=== PATIENT | female | born 1945 | race Caucasian/White ===

== ENCOUNTER → 2017-02-17 | Outpatient (CLI) | payer OTHER ==
[~2017-02-17] VITALS: Ht 157.5 cm; Wt 50.2 kg
[~2017-02-17] MED LIST: BENICAR20 MG PO; CALCIUM 600 +1 EAC8 PO; CELEXA 20 MG TA20 M1 PO; CELEXA 20 MG TA20 MG; CLONAZEPAM 1 MG1 M1 PO; HYDROCODON-ACE1 EAC7 PO; HYDROCODONE-AP1 EAC6 PO; HYDROCODONE-APA1 TA1 PO; MOBIC7.5 MG PO; MS CONTIN15 MG PO; MS CONTIN30 MG PO; NAPROXEN375 MG PO; NORCO 10-325 T1 EACH PO; NORCO 5-325 TA1 EACH PO; NORCO 7.5-3251 EACH PO; OMEPRAZOLE40 MG PO; PROAIR HFA8.5 GM INH; PROTONIX40 M1 PO; PROTONIX40 M4 PO; REQUIP 1 MG TABL1 M1 PO; SYMBICORT80 MCG/4.1 INH; ZOCOR 20 MG TAB20 M1 PO
--- NOTE | ~2017-02-17 | HPC ---
[facility] [place] [address] PAIN MANAGEMENT CONSULTATION Name: ANA LUISA ANDERSON Room #: REG DALIA Burgess#: [id number] Admission: 02/17/17 Attend Phys: Herber Santos DO Discharge: Date of : 43 Report #: [id number] THIS REPORT FOR: //name// CC: Prashant Santos The patient is a 72-year-old female last seen in the pain clinic 12/13/2016 diagnosed with symptomatic lumbar radiculopathy, lumbar spondylosis, requiring complex medication management. She has had epidural injections in the past, bilateral transforaminal epidural injections back in August and had similar procedure about a year earlier in October 2015. She has been stable on baseline medication including hydrocodone 5/325 about 4 a day. She returns to the pain clinic today noting some changes in symptoms. Her chronic radicular back pain is actually fairly well controlled. Her pain impact score is 21/70. Her opiate risk assessment tool scores are in the lowest category. She notes, however, that pain is a little more problematic, rates at 6/10. Transforaminal bilateral injections, last year afforded good relief for radicular pain, but now she has more low back pain without radiation. She notes pain in the mid back beltline area. Chronic aching 6 on a 0-10 visual analog scale, exacerbated with sitting too long or standing too long, rest and lying down do improve symptoms. PHYSICAL EXAM: GENERAL: Shows 72-year-old female, BMI is 20.2 kilograms per meter squared. She continues to smoke and was counseled regarding this. She has a of 02/24/2017, in 1 week. She has nicotine patches ____. VITAL SIGNS: Blood pressure is 168/90, pulse 86, respirations are 20. NEUROLOGIC: Alert and oriented to person, place and time, judged to be a reasonable historian. MUSCULOSKELETAL: Rises from chair using armrest. Diffuse tenderness across the low back, left greater than right rotation exacerbates low back pain. She is tender in the L4-L5 area. Lumbar flexion is limited. She does have a little thoracic kyphosis. Lower extremity strength is diminished, a little greater on the right than the left, 2-3/5 versus 3-4/5 in the left. Patellar and Achilles reflexes are preserved. Straight leg raise is negative. Sparkle test is positive bilaterally, but pain is primarily little bit above this in the L4-L5 and L5-S1 facet area. We reviewed the fact that opiate medications are being used to provide analgesia adequate to support activities of daily living, not attempting to achieve a specific pain score on the 0-10 Visual Analog Scale. The current opiate medications are providing sufficient analgesia to allow the patient to participate in activities of daily living. The patient is not exhibiting any aberrant behavior suggestive of drug diversion. The patient is not having any adverse reactions to medications. The patient is not suffering from daytime somnolence or mental acuity changes. The patient is managing opiate-induced [address] [address] PAIN MANAGEMENT CONSULTATION Name: ANA LUISA ANDERSON Room #: MARISSA Burgess#: [id number] Admission: 02/17/17 Attend Phys: Herber Santos DO Discharge: Date of : 43 Report #: [id number] constipation with appropriate vuuu-oyu-rkqpebo agents and dietary considerations. The patient was counseled on concern for caution with operating a motor vehicle while using opiate medications. A physical exam was performed and the patient's functional status was evaluated. All patients with back pain were advised against the bed rest greater than 4 days and were advised to return to normal activities. Pain score assessment was noted and the treatment plan was reviewed with the patient. All current medications, both prescribed and OTC were reviewed and reconciled on the electronic medical record. Tobacco screening was accomplished and smoking cessation was advised when indicated. BMI was noted and diet/exercise modification was recommended for all patients following outside normal parameters. I reviewed with the patient today their responsibilities to safeguard prescription medications, reviewed their responsibility to utilize medications only as prescribed by the physician. They are to seek and receive pain medications only from 1 physician group ( [facility]). They are to use 1 pharmacy and keep the clinic informed if they change pharmacies. Their responsibilities include making followup visits in a timely fashion and to avoid abrupt discontinuation of medication usage. Their responsibilities further include bringing their medications (bottles from the pharmacy with residual pills) to the visit for possible confirmation of pill counts and the patient understands it is their responsibility to submit to random drug screens to ensure both that the medications prescribed are present, and that no other controlled substances are present. All prescriptions provided today were generated electronically. ASSESSMENT: Lumbar radiculopathy, requiring complex medication management, stable on baseline medication. RECOMMENDATIONS: 1. Renew hydrocodone 5/325 up to 4 a day, taken the liberty of writing for 3 months of current medication. 2. New diagnosis of lumbar spondylosis. RECOMMENDATION: L4-L5 and L5-S1 facet joint injections under fluoroscopy today. PROCEDURE: After written and informed consent was obtained, the patient was taken to the fluoroscopy suite and placed in prone position. After sterile prep and drape, skin wheal with Xylocaine were raised. A #22-gauge stylet needle was placed to contact the inferior aspect of the left L4-L5 and left L5-S1 facet joint. AP and lateral projections showed good needle placement, 20 mg triamcinolone plus 0.5 mL and 0.5% preservative-free bupivacaine was injected at each site. Both of these needles removed. C-arm was turned oblique to the right. Procedure was repeated for the right L4-L5 and L5-S1 facet joint [facility] [address] [address] PAIN MANAGEMENT CONSULTATION Name: ANA LUISA ANDERSON LOU Room #: REG [facility] Aditya#: [id number] Admission: 02/17/17 Attend Phys: Herber Santos DO Discharge: Date of : 43 Report #: [id number] injections, again biplanar fluoroscopy showed good needle placement. After all four needles removed, the patient was allowed to ambulate to recovery room, monitored for an appropriate period of time, discharged in good and stable condition, noting significant improvement of baseline pain, in fact noting the pain was near gone radiating to 0-1 on a 0-10 visual analog scale having been 6/10 on admission. By: [id number] Herber Santos DO /nt
[2017-02-17 09:27] VITALS: BP 168/90
== END ==
LOC: PAIN 06:49
DX: M47.26 Other spondylosis with radiculopathy, lumbar region (principal); I10 Essential (primary) hypertension; F17.210 Nicotine dependence, cigarettes, uncomplicated

== ENCOUNTER → 2017-04-21 | Outpatient (CLI) | payer OTHER ==
[~2017-04-21] VITALS: Ht 157.5 cm; Wt 50.8 kg
--- NOTE | ~2017-04-21 | HPC ---
[facility] [place] [address] [place] [address] PAIN MANAGEMENT CONSULTATION Name: ANA LUISA ANDERSON Room #: REG DALIA Burgess#: [id number] Admission: 04/21/17 Attend Phys: Herber Santos DO Discharge: Date of : 43 Report #: [id number] THIS REPORT FOR: //name// CC: Prashant Santos INDICATIONS: The patient is a 72-year-old female being treated for lumbar radiculopathy, lumbar spondylosis, requiring complex medication management. She is status post lumbar decompressive laminectomy and has had good relief of radicular symptoms with bilateral L4-L5 transforaminal epidural injections, last transforaminal injections were August 2016. Prior, she had bilateral transforaminal injections in December 2015 and October 2015. She was seen February 17 with axial back pain. We proceeded with bilateral L4-L5 and L5-S1 facet joint injections for spondylitic pain. He returns to the pain clinic today. She is continued on hydrocodone 5/325 four a day, having no problems with daytime somnolence, mental acuity changes, constipation. Pain impact score is 20/70. Opioid risk assessment tool scores were in the low risk category. She notes medications provide sufficient analgesia to participate in activities of daily living. Unfortunately, she is having increasing radicular pain again. She notes the facet joint injection did afford good relief with her axial back pain. She had right eye cataract surgery done on April 02. She is planning on having the left side done next week. We told her we would like to wait several weeks before proceeding with any epidural injections given the impact of steroids on wound healing. She continues to smoke, but is down to half pack a day. She smoked for greater than 40 years. We did talk at length about quitting. 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 She is planning on trying to quit smoking after surgery. PHYSICAL EXAMINATION: VITAL SIGNS: A 72-year-old female, BMI is 20.5 kilograms per meter squared. Vital signs are stable as noted in the EMR. MUSCULOSKELETAL: Rises from chair using armrest. Gait is tandem. Diffuse tenderness across the low back has actually improved. She does have radicular pain bilaterally with positive straight leg raise bilaterally. DIAGNOSTIC STUDY: Fairly dated 2010, x-rays show severe degenerative lumbar changes L4-L5 and L5-S1 with stenosis noted at multiple levels. ASSESSMENT: Symptomatic lumbar radiculopathy status post decompressive laminectomy. RECOMMENDATIONS: 1. Renew hydrocodone 5/325, 120 tablets with release today and in 4 weeks. 2. Followup for bilateral L4-L5 transforaminal epidural injections under [address] [address] PAIN MANAGEMENT CONSULTATION Name: ANA LUISA ANDERSON Room #: REG DALIA Burgess#: [id number] Admission: 04/21/17 Attend Phys: Herber Santos DO Discharge: Date of : 43 Report #: [id number] fluoroscopy at the earliest possible date. We will seek authorization for same (we will want to wait at least 2 weeks after her cataract surgery). We reviewed the fact that opiate medications are being used to provide analgesia adequate to support activities of daily living, not attempting to achieve a specific pain score on the 0-10 Visual Analog Scale. The current opiate medications are providing sufficient analgesia to allow the patient to participate in activities of daily living. The patient is not exhibiting any aberrant behavior suggestive of drug diversion. The patient is not having any adverse reactions to medications. The patient is not suffering from daytime somnolence or mental acuity changes. The patient is managing opiate-induced constipation with appropriate sjrx-yai-qfpkwim agents and dietary considerations. The patient was counseled on concern for caution with operating a motor vehicle while using opiate medications. A physical exam was performed and the patient's functional status was evaluated. All patients with back pain were advised against the bed rest greater than 4 days and were advised to return to normal activities. Pain score assessment was noted and the treatment plan was reviewed with the patient. All current medications, both prescribed and OTC were reviewed and reconciled on the electronic medical record. Tobacco screening was accomplished and smoking cessation was advised when indicated. BMI was noted and diet/exercise modification was recommended for all patients following outside normal parameters. I reviewed with the patient today their responsibilities to safeguard prescription medications, reviewed their responsibility to utilize medications only as prescribed by the physician. They are to seek and receive pain medications only from 1 physician group ( [facility]). They are to use 1 pharmacy and keep the clinic informed if they change pharmacies. Their responsibilities include making followup visits in a timely fashion and to avoid abrupt discontinuation of medication usage. Their responsibilities further include bringing their medications (bottles from the pharmacy with residual pills) to the visit for possible confirmation of pill counts and the patient understands it is their responsibility to submit to random drug screens to ensure both that the medications prescribed are present, and that no other controlled substances are present. All prescriptions provided today were generated electronically. <ELECTRONICALLY SIGNED> By: Herber Santos DO 04/23/17 [id number] Herber Santos DO /nt
[2017-04-21 14:59] VITALS: BP 140/79
== END ==
LOC: PAIN 06:49
DX: M54.16 Radiculopathy, lumbar region (principal); Z98.890 Other specified postprocedural states; F17.210 Nicotine dependence, cigarettes, uncomplicated; Z98.42 Cataract extraction status, left eye

== ENCOUNTER → 2017-06-19 | Outpatient (CLI) | payer OTHER ==
[~2017-06-19] VITALS: Ht 157.5 cm; Wt 52.2 kg
--- NOTE | ~2017-06-19 | HPC ---
[facility] [address] [address] PAIN MANAGEMENT CONSULTATION Name: ANA LUISA ANDERSON Room #: REG DALIA Burgess#: [id number] Admission: 06/19/17 Attend Phys: Herber Santos DO Discharge: Date of : 43 Report #: [id number] THIS REPORT FOR: //name// CC: Prashant Santos The patient is a 72-year-old female typically treated for lumbar radiculopathy status post decompressive laminectomy, lumbar spondylosis, requiring complex medication management. Last seen in the pain clinic 04/21/2017. We continued the patient on hydrocodone 5/325 up to 4 a day for chronic pain concerns. She has done well with transforaminal epidural injections occasionally. In February; however, she had primarily axial back pain and I did bilateral lumbar facet joints with really unfortunately nominal improvement of pain. She returns to pain clinic today noting pain continues to be problematic in the back, though it is actually a little better today than it has been, but typically she has ongoing axial back pain with lumbar radicular component bilaterally at L4 pattern, paresthesia and pain in the lateral anterior thigh radiating down the anterior sorensen with paresthesia going into the great toe. The patient notes the pain is exacerbated with standing, walking and bending. She states is chronic, aching sensation, rates it 3-4 on VAS, which is fairly mild for her. Notes the pain is exacerbated with sitting too long, and/or walking too long. PHYSICAL EXAMINATION: Shows a 72-year-old female, 21 kilograms per meter squared. Vital signs stable as noted in the EMR. She is alert, oriented, person, place and time, judged to be a reasonable historian. Rises from chair using armrest, modestly antalgic gait. Lumbar flexion is limited about 80 degrees. Again, bilateral straight leg raise at 30 degrees exacerbating radicular pain. Slight decrease bilateral hip flexion strength. DIAGNOSTIC STUDIES: Somewhat dated, she has scoliosis with severe degenerative changes L4 through L5. That study is from 2010. We reviewed the fact that opiate medications are being used to provide analgesia adequate to support activities of daily living, not attempting to achieve a specific pain score on the 0-10 Visual Analog Scale. The current opiate medications are providing sufficient analgesia to allow the patient to participate in activities of daily living. The patient is not exhibiting any aberrant behavior suggestive of drug diversion. The patient is not having any adverse reactions to medications. The patient is not suffering from daytime somnolence or mental acuity changes. The patient is managing opiate-induced constipation with appropriate pvay-rst-xmfiruq agents and dietary considerations. The patient was counseled on concern for caution with operating a motor vehicle while using opiate medications. A physical exam was performed and the patient's [place] [address] PAIN MANAGEMENT CONSULTATION Name: ANA LUISA ANDERSON Room #: REG CLBoom Burgess#: [id number] Admission: 06/19/17 Attend Phys: Herber Santos DO Discharge: Date of : 43 Report #: [id number] All patients with back pain were advised against the bed rest greater than 4 days and were advised to return to normal activities. Pain score assessment was noted and the treatment plan was reviewed with the patient. All current medications, both prescribed and OTC were reviewed and reconciled on the electronic medical record. Tobacco screening was accomplished and smoking cessation was advised when indicated. BMI was noted and diet/exercise modification was recommended for all patients following outside normal parameters. I reviewed with the patient today their responsibilities to safeguard prescription medications, reviewed their responsibility to utilize medications only as prescribed by the physician. They are to seek and receive pain medications only from 1 physician group ( [facility]). They are to use 1 pharmacy and keep the clinic informed if they change pharmacies. Their responsibilities include making followup visits in a timely fashion and to avoid abrupt discontinuation of medication usage. Their responsibilities further include bringing their medications (bottles from the pharmacy with residual pills) to the visit for possible confirmation of pill counts and the patient understands it is their responsibility to submit to random drug screens to ensure both that the medications prescribed are present, and that no other controlled substances are present. All prescriptions provided today were generated electronically. ASSESSMENT: Symptomatic lumbar radiculopathy status post decompressive laminectomy with ongoing bilateral L4 radicular pain relatively stable on baseline hydrocodone 5/325. She has had excellent relief following bilateral transforaminal epidural injections in the past, last injection was 08/30/2016. Prior she had transforaminal epidural injections October 2015. We will seek authorization for bilateral L4-L5 transforaminal epidural injection under fluoroscopy at next visit. I have taken the liberty of renewing hydrocodone 5/325, up to 4 a day for ongoing pain. Discharged in good and stable condition. By: [id number] Herber Santos DO /nt
[2017-06-19 10:48] VITALS: BP 165/88
== END | disposition home or self-care (01) ==
LOC: PAIN 05-19 06:41
DX: Z76.0 Encounter for issue of repeat prescription (principal); M54.16 Radiculopathy, lumbar region; G89.29 Other chronic pain; F17.210 Nicotine dependence, cigarettes, uncomplicated; Z98.890 Other specified postprocedural states; Z79.891 Long term (current) use of opiate analgesic

== ENCOUNTER → 2017-07-07 | Outpatient (CLI) | payer OTHER ==
[~2017-07-07] VITALS: Ht 157.5 cm; Wt 53.1 kg
--- NOTE | ~2017-07-07 | HPC ---
[facility] [place] [address] PAIN MANAGEMENT CONSULTATION Name: ANA LUISA ANDERSON Room #: REG DALIA Burgess#: [id number] Admission: 07/07/17 Attend Phys: Herber Santos DO Discharge: Date of : 43 Report #: [id number] THIS REPORT FOR: //name// CC: Prashant Santos HISTORY OF PRESENT ILLNESS: The patient is a 72-year-old female, prior seen in the pain clinic on 06/19/2017. She is being treated for symptomatic lumbar radiculopathy status post decompressive laminectomy, lumbar spondylosis, requiring complex medication management. Last visit, we continued the patient on baseline medication including hydrocodone 5/325 up to 4 a day and sought authorization for bilateral L4-L5 transforaminal epidural injections. The patient has had good relief with facet injections in the past, last injection being 02/17/2017. Ongoing back, bilateral leg pain, left greater than right. ASSESSMENT: Symptomatic lumbar radiculopathy status post decompressive laminectomy. The patient presents for bilateral transforaminal epidural injections under fluoroscopy at L4-L5 for ongoing lumbar radicular pain L4 distribution left and right, status post lumbar decompressive laminectomy. PROCEDURE 1: Left L4-L5 transforaminal epidural injection under fluoroscopy. PROCEDURE NOTE: After both written and informed consent was obtained including risk of spinal cord damage, infection, increased pain and paralysis, the patient agreed to proceed. The patient was taken to the fluoroscopy suite, placed in a prone position with appropriate abdominal bolstering. After sterile prep with ChloraPrep and sterile drape, a skin wheal with 1% Xylocaine was raised. A 22 gauge 4-1/2 inch epidural Tuohy needle was inserted. From an oblique approach into the posterior-superior aspect of the left L4-L5 neural foramen with continuous pressure on the glass syringe plunger for loss of resistance. Glass syringe was filled with 2 cc of 0.1 Xylocaine. The glass loss of resistance syringe was removed. A low volume extension tubing was connected, negative aspiration was accomplished for cerebrospinal fluid or blood. 1 mL of Omnipaque was injected which showed spread both within the epidural space and laterally along the nerve root. This was followed with 40 mg of triamcinolone plus 1 mL of 1.5% preservative-free Xylocaine. Needle was partially withdrawn, 0.5 mL of Xylocaine was injected to clear the needle and the needle was removed. The area was cleansed, band-aid was applied. The patient was allowed to ambulate to the recovery room, discharged in good and stable condition. PROCEDURE 2: Right L4-L5 transforaminal epidural injection under fluoroscopy. PROCEDURE NOTE: After both written and informed consent was obtained including risk of spinal cord damage, infection, increased pain and paralysis, the patient agreed to proceed. The patient was taken to the fluoroscopy suite, placed in a prone position with appropriate abdominal bolstering. After sterile prep with ChloraPrep and sterile drape, a skin wheal with 1% Xylocaine was raised. A [address] [address] PAIN MANAGEMENT CONSULTATION Name: ANA LUISA ANDERSON Room #: REG DALIA Burgess#: [id number] Admission: 07/07/17 Attend Phys: Herber Santos, Discharge: Date of : 43 Report #: [id number] gauge 4-1/2 inch epidural Tuohy needle was inserted. From an oblique approach into the posterior-superior aspect of the right L4-L5 neural foramen with continuous pressure on the glass syringe plunger for loss of resistance. Glass syringe was filled with 2 cc of 0.1 Xylocaine. The glass loss of resistance syringe was removed. A low volume extension tubing was connected, negative aspiration was accomplished for cerebrospinal fluid or blood. 1 mL of Omnipaque was injected which showed spread both within the epidural space and laterally along the nerve root. This was followed with 40 mg of triamcinolone plus 1 mL of 1.5% preservative-free Xylocaine. Needle was partially withdrawn, 0.5 mL of Xylocaine was injected to clear the needle and the needle was removed. The area was cleansed, band-aid was applied. The patient was allowed to ambulate to the recovery room, discharged in good and stable condition. By: [id number] Herber Santos DO /nt
[2017-07-07 12:46] VITALS: BP 159/86
== END | disposition home or self-care (01) ==
LOC: PAIN 07:09
DX: M47.26 Other spondylosis with radiculopathy, lumbar region (principal); Z79.899 Other long term (current) drug therapy; Z98.890 Other specified postprocedural states; F17.200 Nicotine dependence, unspecified, uncomplicated; M54.16 Radiculopathy, lumbar region

== ENCOUNTER → 2017-12-04 | Outpatient (CLI) | payer OTHER ==
[~2017-12-04] VITALS: Ht 157.5 cm; Wt 56.4 kg
[~2017-12-04] MED LIST changes: +ANORO ELLIPTA1 EACH INH; +BREO ELLIPTA 11 EACH INH; +CARTIA XT120 M1 PO; +LIPITOR 20 MG T20 M1 PO; +LISINOPRIL10 MG PO; +PLAVIX 75 MG TA75 M1 PO; +VENTOLIN HFA 1818 GM INH
--- NOTE | ~2017-12-04 | HPC ---
[facility] [place] [address] PAIN MANAGEMENT CONSULTATION Name: ANA LUISA ANDERSON Room #: REG DALIA Leo.#: [id number] Admission: 12/04/17 Attend Phys: Herber Santos DO Discharge: Date of : 43 Report #: [id number] THIS REPORT FOR: //name// CC: Prashant Santos HISTORY OF PRESENT ILLNESS: The patient is a pleasant 72-year-old female typically treated for lumbar radiculopathy status post decompressive laminectomy, lumbar spondylosis, requiring high risk complex medication management. Last seen in the pain clinic on 09/25/2017. The patient was continued on low-dose hydrocodone 5/325 one tablet about 4 times a day. We did do bilateral transforaminal epidural injections back in June (07/07/2017) with overall improvement in baseline pain. She prior had bilateral transforaminal epidural injection back in August 2016. Last visit, we simply continue the patient on baseline medication with an extensive followup in 2 months. The patient returns to pain clinic today. She actually looks better than she has in some time. She discontinued smoking in September. She has chronic low back pain. She was told she may need a heart stent. She is following up with a cardiac surgeon next month. She has had several lung infections this past October, though she was on steroids for a short bit and caused some gastritis. She is off the steroids now and states that her stomach is better. She is eating better and has actually gained a little bit of weight. Her BMI is up to 22.7 kilograms per meter squared. She rates the pain a 5 on a VAS, sharp stiff pain in the back. To her credit, she is doing physical therapy at home. She does some upper body exercises, some low back and core strength exercises and walks on a treadmill "a few minutes" at a time. She stresses that she does all of these on a nondaily basis. She does have multiple stressors at home. She notes that her son has diabetes and with poor controls and had recent amputation of 4 toes and may require a below-knee amputation. She tells me her is quite sick, apparently had cardiac issues and currently in the hospital. PHYSICAL EXAMINATION: GENERAL: Nonetheless, the patient actually looks pretty good today. She is alert and oriented to person, place, and time, judged to be a reasonable historian. VITAL SIGNS: Again, subjective pain score is 5 on a VAS. Blood pressure 147/67, pulse 89, respirations 14. MUSCULOSKELETAL: Lower extremity strength is symmetric. Straight leg raise is negative. Modestly antalgic gait. I believe, she uses a walker occasionally for balance. We reviewed the fact that opiate medications are being used to provide analgesia [address] [address] PAIN MANAGEMENT CONSULTATION Name: ANA LUISA ANDERSON Room #: REG [facility] Aditya#: [id number] Admission: 12/04/17 Attend Phys: Herber Santos DO Discharge: Date of : 43 Report #: [id number] adequate to support activities of daily living, not attempting to achieve a specific pain score on the 0-10 Visual Analog Scale. The current opiate medications are providing sufficient analgesia to allow the patient to participate in activities of daily living. The patient is not exhibiting any aberrant behavior suggestive of drug diversion. The patient is not having any adverse reactions to medications. The patient is not suffering from daytime somnolence or mental acuity changes. The patient is managing opiate-induced constipation with appropriate tzbn-rtk-lbnjshj agents and dietary considerations. The patient was counseled on concern for caution with operating a motor vehicle while using opiate medications. A physical exam was performed and the patient's functional status was evaluated. All patients with back pain were advised against the bed rest greater than 4 days and were advised to return to normal activities. Pain score assessment was noted and the treatment plan was reviewed with the patient. All current medications, both prescribed and OTC were reviewed and reconciled on the electronic medical record. Tobacco screening was accomplished and smoking cessation was advised when indicated. BMI was noted and diet/exercise modification was recommended for all patients following outside normal parameters. I reviewed with the patient today their responsibilities to safeguard prescription medications, reviewed their responsibility to utilize medications only as prescribed by the physician. They are to seek and receive pain medications only from 1 physician group ( [facility]). They are to use 1 pharmacy and keep the clinic informed if they change pharmacies. Their responsibilities include making followup visits in a timely fashion and to avoid abrupt discontinuation of medication usage. Their responsibilities further include bringing their medications (bottles from the pharmacy with residual pills) to the visit for possible confirmation of pill counts and the patient understands it is their responsibility to submit to random drug screens to ensure both that the medications prescribed are present, and that no other controlled substances are present. All prescriptions provided today were generated electronically. ASSESSMENT: Lumbar radiculopathy status post decompressive laminectomy, lumbar spondylosis by history, requiring complex medication management. RECOMMENDATIONS: Continue hydrocodone 5/325 up to 4 a day, taken the liberty of writing for 2 months current medications. Follow up in 2 months for reevaluation or earlier if needed. <ELECTRONICALLY SIGNED> By: Herber Santos DO 12/05/17 0725 [id number] Herber Santos DO /nt
[2017-12-04 13:48] VITALS: BP 147/67
== END ==
LOC: PAIN 06:57
DX: M54.16 Radiculopathy, lumbar region (principal); M47.896 Other spondylosis, lumbar region; Z98.890 Other specified postprocedural states; Z79.899 Other long term (current) drug therapy

== ENCOUNTER → 2018-01-12 | Outpatient (CLI) | payer OTHER, SELFPAY ==
[~2018-01-12] VITALS: Ht 157.5 cm; Wt 58.3 kg
--- NOTE | ~2018-01-12 | HPC ---
[facility] [place] [address] PAIN MANAGEMENT CONSULTATION Name: ANA LUISA ANDERSON Room #: REG Boom Leo.#: [id number] Admission: 01/12/18 Attend Phys: Herber Santos DO Discharge: Date of : 43 Report #: [id number] THIS REPORT FOR: //name// CC: Prashant Santos The patient is a pleasant 72-year-old female, long treated for symptomatic lumbar radiculopathy status post decompressive laminectomy, component of lumbar spondylosis and lumbosacral spondylosis. She has done well with bilateral L4-L5 transforaminal epidural injections, last injection was back in June with overall improvement of pain for several months. Prior she had had bilateral transforaminal epidural injections in 02/2017. She returns to the pain clinic today. The patient continues to use hydrocodone 5/325 one tablet 4 times a day. She is doing well with chronic pain medication, although she notes that several months after interventional therapy, pain becomes more problematic. She denies antecedent trauma and overuse. She notes recently she has actually started to take two hydrocodone together due to ongoing increasing pain, which has come about without antecedent trauma. She notes pain is in the low back, bilateral legs, dull, chronic, aching sensation that she rates an 8 on a VAS, worse with activity and worse in the morning. PHYSICAL EXAMINATION: Shows a pleasant 72-year-old female, BMI is 23.5 kilograms per meter squared. Vital signs are stable as noted in the EMR. She is a former smoker. Subjective pain score is an 8 on a VAS. She has not fallen in 3 months. She does not feel that her legs are getting weaker. Rises from chair using armrest, antalgic gait, diffuse tenderness across the low back, positive straight leg raise bilaterally. Lower extremity strength is slightly diminished. ASSESSMENT #1: Symptomatic lumbar radiculopathy with history and physical exam, bilateral L4 radicular pain pattern, status post decompressive laminectomy and fusion, chronic pain syndrome requiring complex medication management and component of lumbar spondylosis. We reviewed the fact that opiate medications are being used to provide analgesia adequate to support activities of daily living, not attempting to achieve a specific pain score on the 0-10 Visual Analog Scale. The current opiate medications are providing sufficient analgesia to allow the patient to participate in activities of daily living. The patient is not exhibiting any aberrant behavior suggestive of drug diversion. The patient is not having any adverse reactions to medications. The patient is not suffering from daytime somnolence or mental acuity changes. The patient is managing opiate-induced constipation with appropriate rfnq-ayy-yfqomuu agents and dietary considerations. The patient was counseled on concern for caution with operating [address] [address] PAIN MANAGEMENT CONSULTATION Name: ANA LUISA ANDERSON Room #: REG Boom Burgess#: [id number] Admission: 01/12/18 Attend Phys: Herber Santos DO Discharge: Date of : 43 Report #: [id number] a motor vehicle while using opiate medications. A physical exam was performed and the patient's functional status was evaluated. All patients with back pain were advised against the bed rest greater than 4 days and were advised to return to normal activities. Pain score assessment was noted and the treatment plan was reviewed with the patient. All current medications, both prescribed and OTC were reviewed and reconciled on the electronic medical record. Tobacco screening was accomplished and smoking cessation was advised when indicated. BMI was noted and diet/exercise modification was recommended for all patients following outside normal parameters. I reviewed with the patient today their responsibilities to safeguard prescription medications, reviewed their responsibility to utilize medications only as prescribed by the physician. They are to seek and receive pain medications only from 1 physician group ( [facility]). They are to use 1 pharmacy and keep the clinic informed if they change pharmacies. Their responsibilities include making followup visits in a timely fashion and to avoid abrupt discontinuation of medication usage. Their responsibilities further include bringing their medications (bottles from the pharmacy with residual pills) to the visit for possible confirmation of pill counts and the patient understands it is their responsibility to submit to random drug screens to ensure both that the medications prescribed are present, and that no other controlled substances are present. All prescriptions provided today were generated electronically. RECOMMENDATION #1: Renew hydrocodone 5/325, dispensed 120 tablets with second prescription release in 4 weeks. ASSESSMENT #2: Acute exacerbation of lumbar radicular symptoms. RECOMMENDATION #2: Bilateral transforaminal epidural injections at L4-L5. PROCEDURE #1: Left L4-L5 transforaminal epidural injection under fluoroscopy. PROCEDURE NOTE: After both written and informed consent was obtained including risk of spinal cord damage, infection, increased pain and paralysis, the patient agreed to proceed. The patient was taken to the fluoroscopy suite, placed in a prone position with appropriate abdominal bolstering. After sterile prep with ChloraPrep and sterile drape, a skin wheal with 1% Xylocaine was raised. A 22 gauge 4-1/2 inch epidural Tuohy needle was inserted. From an oblique approach into the posterior-superior aspect of the left L4-L5 neural foramen with continuous pressure on the glass syringe plunger for loss of resistance. Glass syringe was filled with 2 cc of 0.1 Xylocaine. The glass loss of resistance syringe was removed. A low volume extension tubing was connected, negative aspiration was accomplished for cerebrospinal fluid or blood. 1 mL of Omnipaque was injected which showed spread both within the epidural space and laterally along the nerve root. This was followed with 40 mg of triamcinolone plus 1 mL of 1.5% preservative-free Xylocaine. Needle was partially withdrawn, 0.5 mL of [facility] [address] [place] [address] PAIN MANAGEMENT CONSULTATION Name: ANA LUISA ANDERSON LOU Room #: REG DALIA Burgess#: [id number] Admission: 01/12/18 Attend Phys: Herber Santos DO Discharge: Date of : 43 Report #: [id number] Xylocaine was injected to clear the needle and the needle was removed. The area was cleansed, Band-Aid was applied. The patient was allowed to ambulate to the recovery room, discharged in good and stable condition. PROCEDURE #2. Right L4-L5 transforaminal epidural injection. PROCEDURE NOTE: After both written and informed consent was obtained including risk of spinal cord damage, infection, increased pain and paralysis, the patient agreed to proceed. The patient was taken to the fluoroscopy suite, placed in a prone position with appropriate abdominal bolstering. After sterile prep with ChloraPrep and sterile drape, a skin wheal with 1% Xylocaine was raised. A 22 gauge 4-1/2 inch epidural Tuohy needle was inserted. From an oblique approach into the posterior-superior aspect of the right L4-L5 neural foramen with continuous pressure on the glass syringe plunger for loss of resistance. Glass syringe was filled with 2 cc of 0.1 Xylocaine. The glass loss of resistance syringe was removed. A low volume extension tubing was connected, negative aspiration was accomplished for cerebrospinal fluid or blood. 1 mL of Omnipaque was injected which showed spread both within the epidural space and laterally along the nerve root. This was followed with 40 mg of triamcinolone plus 1 mL of 1.5% preservative-free Xylocaine. Needle was partially withdrawn, 0.5 mL of Xylocaine was injected to clear the needle and the needle was removed. The area was cleansed, Band-Aid was applied. The patient was allowed to ambulate to the recovery room, discharged in good and stable condition. <ELECTRONICALLY SIGNED> By: Herber Santos DO 01/14/18 0820 [id number] Herber Santos DO /nt
[2018-01-12 13:56] VITALS: BP 161/76
== END | disposition home or self-care (01) ==
LOC: PAIN 07:28
DX: M54.16 Radiculopathy, lumbar region (principal); G89.4 Chronic pain syndrome; M47.896 Other spondylosis, lumbar region; Z79.891 Long term (current) use of opiate analgesic; Z98.890 Other specified postprocedural states; Z87.891 Personal history of nicotine dependence; Z79.899 Other long term (current) drug therapy

== ENCOUNTER → 2018-06-16 | Outpatient (CLI) | payer OTHER ==
[~2018-06-16] VITALS: Ht 157.5 cm; Wt 56.5 kg
--- NOTE | ~2018-06-16 | HPC ---
[facility] [place] [address] PAIN MANAGEMENT CONSULTATION Name: ANA LUISA ANDERSON Room #: REG [facility] M.Luis Antonio.#: [id number] Admission: 06/16/18 Attend Phys: Yuan Santos DO Discharge: Date of : 43 Report #: [id number] THIS REPORT FOR: //name// CC: Yuan Ayers DATE OF SERVICE: 06/16/2018 CHIEF COMPLAINT: Low back pain, bilateral lower extremity pain and paresthesias. HISTORY OF PRESENT ILLNESS: As you know, the patient is a 73-year-old female known to the pain clinic, typically treated for lumbar radiculopathy status post decompressive laminectomy. She also suffers from displacement of lumbar intervertebral disk with radiculopathy, lumbosacral spondylosis with radiculopathy and degeneration of the lumbar spine leading to chronic intractable symptoms. She returns today in followup visit requesting refill on medications. She takes hydrocodone 5/325 four times a day. She has been stable on this medication for some time. She denies any side effects of somnolence, decreased mental acuity, disorientation, confusion or constipation with these medications. She returns today in followup visit requesting refill on medications. She denies any new injury, new trauma or any changes in medical history since our last visit. ALLERGIES: Please see chart. CURRENT MEDICATIONS: For pain, hydrocodone 5/325 one tab every 6 hours p.r.n. pain. SOCIAL HISTORY: The patient reports no tobacco, no alcohol, no IV or illicit drug use. She is retired. She is unaccompanied today. IMAGING: No new imaging available. PHYSICAL EXAMINATION: GENERAL: Well-developed, well-nourished, well-hydrated 73-year-old female, appears her stated age. She is a reasonable historian. She rises from a chair without arm rest use. MUSCULOSKELETAL: Her gait is tandem. Lower extremity strength is 5/5. Deconditioning noted bilaterally. Lumbar flexion is limited. Pain is elicited with rising from a forward flexed position. ASSESSMENT: 1. Symptomatic lumbar radiculopathy. 2. Displacement of lumbar intervertebral disk with radiculopathy. [facility] [address] [place] [address] PAIN MANAGEMENT CONSULTATION Name: ANA LUISA ANDERSON Room #: REG [facility]#: [id number] Admission: 06/16/18 Attend Phys: Yuan Santos DO Discharge: Date of : 43 Report #: [id number] 3. Lumbosacral spondylosis with radiculopathy. 4. Lumbar degeneration. 5. Chronic intractable pain. PLAN: 1. We reviewed the fact that opiate medications are being used to provide analgesia adequate to support activities of daily living, not attempting to achieve a specific pain score on the 0-10 Visual Analog Scale. The current opiate medications are providing sufficient analgesia to allow the patient to participate in activities of daily living. The patient is not exhibiting any aberrant behavior suggestive of drug diversion. The patient is not having any adverse reactions to medications. The patient is not suffering from daytime somnolence or mental acuity changes. The patient is managing opiate-induced constipation with appropriate vtzu-ogt-yykvnya agents and dietary considerations. The patient was counseled on concern for caution with operating a motor vehicle while using opiate medications. A physical exam was performed and the patient's functional status was evaluated. All patients with back pain were advised against the bed rest greater than 4 days and were advised to return to normal activities. Pain score assessment was noted and the treatment plan was reviewed with the patient. All current medications, both prescribed and OTC were reviewed and reconciled on the electronic medical record. Tobacco screening was accomplished and smoking cessation was advised when indicated. BMI was noted and diet/exercise modification was recommended for all patients following outside normal parameters. I reviewed with the patient today their responsibilities to safeguard prescription medications, reviewed their responsibility to utilize medications only as prescribed by the physician. They are to seek and receive pain medications only from 1 physician group ( [facility]). They are to use 1 pharmacy and keep the clinic informed if they change pharmacies. Their responsibilities include making followup visits in a timely fashion and to avoid abrupt discontinuation of medication usage. Their responsibilities further include bringing their medications (bottles from the pharmacy with residual pills) to the visit for possible confirmation of pill counts and the patient understands it is their responsibility to submit to random drug screens to ensure both that the medications prescribed are present, and that no other controlled substances are present. All prescriptions provided today were generated electronically. 2. The patient was provided a refill prescription of hydrocodone 5/325 one tab p.o. q. 6 hours p.r.n. for pain, I have given the patient #120, releases of today, 4 weeks from today. This equates to 20 morphine equivalents a day, well below the CDC's recommended 90 morphine equivalents or less per day. The patient is having no side effects of medication, will continue the medication. 3. We will see the patient back in followup visit in about 2 months. At that [facility] [address] [place] [address] PAIN MANAGEMENT CONSULTATION Name: ANA LUISA ANDERSON Room #: REG [facility] Ahmet.#: [id number] Admission: 06/16/18 Attend Phys: Yuan Santos DO Discharge: Date of : 43 Report #: [id number] time, discuss the efficacy of the medication to determine if continuing this treatment therapy would be recommended. By: [id number] Yuan Santos DO /nt
[2018-06-16 14:19] VITALS: BP 131/74
== END ==
LOC: PAIN 07:10
DX: M47.27 Other spondylosis with radiculopathy, lumbosacral region (principal); M51.16 Intervertebral disc disorders with radiculopathy, lumbar region; G89.4 Chronic pain syndrome; Z79.899 Other long term (current) drug therapy

== ENCOUNTER → 2018-08-19 | Outpatient (CLI) | payer OTHER ==
[~2018-08-19] VITALS: Ht 157.5 cm; Wt 57.6 kg
--- NOTE | ~2018-08-19 | HPC ---
[facility] [place] [address] PAIN MANAGEMENT CONSULTATION Name: ANA LUISA ANDERSON Room #: REG [facility] M.Luis Antonio.#: [id number] Admission: 08/19/18 Attend Phys: Yuan Santos DO Discharge: Date of : 41 Report #: [id number] THIS REPORT FOR: //name// CC: Yuan Sethi MD DATE OF SERVICE: 08/19/2018 REFERRING PHYSICIAN: Prashant Ayers M.D. CHIEF COMPLAINT: Lumbar radiculopathy, status post lumbar decompression. HISTORY OF PRESENT ILLNESS: As you know, the patient is a 73-year-old female who has been followed by [facility] for an extended period of time for chronic low back pain and lower extremity pain with paresthesias. The patient indicates pain is aching, dull, constant in sensation, exacerbated with rising in the morning, improves with activity, repositioning and medications. She is placing current pain score 7/10. The patient has been on hydrocodone 5/325 four times a day for pain control for an extended period of time. She returns today for refill on medications stating her medications are working well. She is continuing workup in regards to coming off of her oxygen at night. She is now a nonsmoker for nearly 2 months and is quite excited about the feet. We applaud the patient for continuing smoking cessation. She returns for refill of medications. ALLERGIES: No known drug allergies. CURRENT MEDICATIONS: Hydrocodone 5/325 up to 4 times a day p.r.n. pain, atorvastatin 20 mg per day, Plavix 75 mg per day, albuterol 2 puffs q. 4 hours p.r.n., lisinopril 10 mg per day, Cartia XT 120 mg per day, pantoprazole 40 mg per day and clonazepam 1 mg p.o. at bedtime. SOCIAL HISTORY: The patient is now reporting herself as a nonsmoker. Denies IV or illicit drug use. Denies any chronic alcohol use. She is retired. She is unaccompanied today. PQRS: The patient has osteoarthritis of the lumbar spine, bilateral hips and knee joints. She does not have rheumatoid arthritis. She is not a fall risk, has not had a fall in the last 3 months. She is on blood thinners. She is treated for hypertension. She is placing pain intensity is 7/10. She is on opioids and has been so for an extended period of time. She has a low opioid addiction potential. Functional assessment pain impact tool indicates 21/70, [id number]-[id number]-[id number] interference of daily activities secondary to pain. [address] [address] PAIN MANAGEMENT CONSULTATION Name: ANA LUISA ANDERSON Room #: REG [facility] Ahmet.#: [id number] Admission: 08/19/18 Attend Phys: Yuan Santos DO Discharge: Date of : 43 Report #: [id number] PHYSICAL EXAMINATION: VITAL SIGNS: Blood pressure 159/86, pulse is 93 and respiratory rate 16 and unlabored. The patient is 100% on room air. Height 5 feet 2 inches tall, weight 127 pounds and BMI calculated 23.2. GENERAL: Well-developed, well-nourished 73-year-old female, appears stated age, placing current pain score 7/10. HEENT: Normocephalic and atraumatic. Pupils equal, round and reactive to light. EXTREMITIES: Show no clubbing, no cyanosis and no edema. MUSCULOSKELETAL: The patient has difficulty rising from a seated position and have to utilize chair armrests to rise. Lower extremity strength is symmetrical, deconditioning noted. Muscle bulk and tone equal and symmetrical. Seated straight leg raising negative. Supine straight leg raising positive. Sparkle's test negative. ASSESSMENT: 1. Lumbar radiculopathy. 2. Lumbosacral spondylosis with radiculopathy. 3. Post-laminectomy syndrome. 4. Degeneration of the lumbar spine. 5. Complex medication management. 6. Opioid dependency. 7. Chronic intractable pain. PLAN: 1. The patient returns today in followup visit requesting refill on medications. She indicates that she is now a nonsmoker and has been a nonsmoker for nearly 2 months. She is excited about her accomplishments to date. We applaud the patient for discontinuing the activity of smoking. As you are aware, smoking has a direct link to chronic pain propagation and we applaud the patient for discontinuing the use of tobacco products, specifically nicotine containing tobacco products. The patient and I discussed this today and have offered our assistance if she has difficulty continuing to be a nonsmoker. 2. The patient was provided refill prescription of [place] 10/325 one tab p.o. q. 6 hours p.r.n. for pain, I have given the patient #120 tablets, releasing today, 4 weeks from today, 2 months' worth of medication. 3. The patient is to follow up with her ball points inspector in regards to the possibility of coming off of oxygen at night. The patient has been dependent on oxygen at night for a couple of years. Hopefully, they can wean the patient off this oxygen if her symptoms improve and respiratory effort improves after discontinuation of smoking. [facility] [address] [place] [address] PAIN MANAGEMENT CONSULTATION Name: ANA LUISA ANDERSON Room #: REG [facility]#: [id number] Admission: 08/19/18 Attend Phys: Yuan Santos DO Discharge: Date of : 43 Report #: [id number] 4. We will see the patient back in followup visit in 2 months for medication management. <ELECTRONICALLY SIGNED> By: Yuan Santos DO 08/26/18 1059 [id number] Yuan Santos DO /nt
[2018-08-19 13:41] VITALS: BP 159/86
== END ==
LOC: PAIN 06:54
DX: M47.27 Other spondylosis with radiculopathy, lumbosacral region (principal); M51.16 Intervertebral disc disorders with radiculopathy, lumbar region; G89.4 Chronic pain syndrome; M96.1 Postlaminectomy syndrome, not elsewhere classified; F11.20 Opioid dependence, uncomplicated; Z79.899 Other long term (current) drug therapy

== ENCOUNTER → 2018-10-27 | Outpatient (CLI) | payer OTHER ==
[~2018-10-27] VITALS: Ht 154.9 cm; Wt 56.4 kg
[~2018-10-27] MED LIST changes: +ASPIR 8181 MG PO; +HYDROCODON-ACE1 EAC5 PO; +HYDROCODONE-AP1 EA11 PO
--- NOTE | ~2018-10-27 | HPC ---
[facility] [place] [address] [place] [address] PAIN MANAGEMENT CONSULTATION Name: ANA LUISA ANDERSON Room #: REG [facility] M.R.#: [id number] Admission: 10/27/18 Attend Phys: Yuan Santos DO Discharge: Date of : 43 Report #: [id number] THIS REPORT FOR: //name// CC: Yuan Sethi MD DATE OF SERVICE: 10/27/2018 CHIEF COMPLAINT: Low back pain, lower extremity pain with paresthesias. HISTORY OF PRESENT ILLNESS: As you know, the patient is a 73-year-old female who has been followed by [facility] for an extended period of time addressing low back pain and lower extremity pain with paresthesias. As you are aware, the patient's last imaging of 2010 shows scoliosis and severe degenerative changes at the L4-L5 and L5-S1 level. MRI just prior to this imaging showed moderate stenosis of central canal at L4-L5 and L5-S1. At last visit, the patient was continued on medication therapy. She returns today considering undergoing an epidural injection under fluoroscopic guidance, though her immigration paralegal has not released her to undergo the procedure indicating that her valve replacement precludes her from having steroid injection for up to 6 months. She returns to adjust medications today. ALLERGIES: No known drug allergies. CURRENT MEDICATIONS: Hydrocodone 5/325 one tab every 6 hours p.r.n. for pain, atorvastatin 20 mg per day, Plavix 75 mg per day, albuterol 2 puffs q.4h. p.r.n., lisinopril 10 mg per day, Cartia XT 120 mg per day, pantoprazole 40 mg per day, clonazepam 1 mg once a day. SOCIAL HISTORY: The patient denies she is a tobacco smoker. Denies IV or illicit drug use. She denies any chronic alcohol use. She is retired, unaccompanied today. IMAGING: No new imaging available. PQRS: The patient has osteoarthritic changes of the lumbar spine, bilateral hips and knee joints. No rheumatoid arthritis. She is not a fall risk, has not had a fall in the last 3 months. She is on blood thinners. She is treated for hypertension. She is placing pain intensity today around 8/10. She has been on opioids for an extended period of time. She reportedly has a low addiction potential. Pain impact shows , mild interference of daily activities secondary to pain. PHYSICAL EXAMINATION: [address] [address] PAIN MANAGEMENT CONSULTATION Name: ANA LUISA ANDERSON Room #: REG [facility]#: [id number] Admission: 10/27/18 Attend Phys: Yuan Santos DO Discharge: Date of : 43 Report #: [id number] VITAL SIGNS: Blood pressure 151/81, pulse 100, respiratory rate 18 and unlabored. The patient is 96% on room air. Height 5 feet 1 inch tall, weight 124.4 pounds, BMI calculated 23.5. GENERAL: Well-developed, well-nourished, well-hydrated 73-year-old female, appearing stated age, placing pain today at 8/10. HEENT: Normocephalic, atraumatic. Pupils equal, round, reactive to light. Extraocular muscles are intact. Sclerae nonicteric without injection. NEUROLOGIC: Cranial nerves 2-12 grossly intact. Speech is fluent. EXTREMITIES: Show no clubbing, no cyanosis, no edema. MUSCULOSKELETAL: The patient once again has difficulty rising from a seated position, has to utilize the armchairs to arise out of the seat. The lower extremity strength is symmetrical, but deconditioned. Muscle bulk and tone is symmetrical when comparing left lower extremity to right. Seated straight leg raising negative. Supine straight leg raising positive. Sparkle's test negative. Modified Gaenslen's is positive for axial low back pain. ASSESSMENT: 1. Lumbar radiculopathy. 2. Spinal stenosis of lumbar spine. 3. Displacement of lumbar intervertebral disk with radiculopathy. 4. Lumbosacral spondylosis with radiculopathy. 5. Post-laminectomy syndrome. 6. Degeneration of lumbar spine. 7. Complex medication management. 8. Opioid dependency. 9. Chronic intractable pain. PLAN: 1. The patient has returned today in followup visit requesting increase in pain medication as she is not seeing good benefit with current medication management. She has been precluded from undergoing epidural injections due to current cardiac condition and her anticoagulants. She will apparently be coming off her anticoagulant soon. She wishes adjustments in medication today. 2. We reviewed the fact that opiate medications are being used to provide analgesia adequate to support activities of daily living, not attempting to achieve a specific pain score on the 0-10 Visual Analog Scale. The current opiate medications are providing sufficient analgesia to allow the patient to participate in activities of daily living. The patient is not exhibiting any aberrant behavior suggestive of drug diversion. The patient is not having any adverse reactions to medications. The patient is not suffering from daytime somnolence or mental acuity changes. The patient is managing opiate-induced constipation with appropriate ylzq-kiv-rpspzas agents and dietary considerations. The patient was counseled on concern for caution with operating a motor vehicle while using opiate medications. A physical exam was performed and the patient's functional status was evaluated. [address] [address] PAIN MANAGEMENT CONSULTATION Name: ANA LUISA ANDERSON Room #: REG [facility].#: [id number] Admission: 10/27/18 Attend Phys: Yuan Santos DO Discharge: Date of : 43 Report #: [id number] All patients with back pain were advised against the bed rest greater than 4 days and were advised to return to normal activities. Pain score assessment was noted and the treatment plan was reviewed with the patient. All current medications, both prescribed and OTC were reviewed and reconciled on the electronic medical record. Tobacco screening was accomplished and smoking cessation was advised when indicated. BMI was noted and diet/exercise modification was recommended for all patients following outside normal parameters. I reviewed with the patient today their responsibilities to safeguard prescription medications, reviewed their responsibility to utilize medications only as prescribed by the physician. They are to seek and receive pain medications only from 1 physician group ( [facility]). They are to use 1 pharmacy and keep the clinic informed if they change pharmacies. Their responsibilities include making followup visits in a timely fashion and to avoid abrupt discontinuation of medication usage. Their responsibilities further include bringing their medications (bottles from the pharmacy with residual pills) to the visit for possible confirmation of pill counts and the patient understands it is their responsibility to submit to random drug screens to ensure both that the medications prescribed are present, and that no other controlled substances are present. All prescriptions provided today were generated electronically. 3. The patient was provided prescription of [place] 7.5/325 one tab every 6 hours p.r.n. for pain, given the patient #120, releases of today and 4 weeks from today. The patient was advised to watch for side effects with the use of medication. This is a 50% increase in opioid medication from her prior dosing. She is to watch for the side effects of somnolence, decreased mental acuity, disorientation, confusion, mental slowing and constipation. If she notes any side effects, discontinue immediately. 4. We will see the patient back in followup visit in 2 months for adjustments in medication therapy. She can return earlier if she is able to come off her anticoagulant to undergo epidural injections. By: [id number] Yuan Santos DO /nt
[2018-10-27 10:55] VITALS: BP 151/81
== END ==
LOC: PAIN 10:05
DX: M47.27 Other spondylosis with radiculopathy, lumbosacral region (principal); M48.061 Spinal stenosis, lumbar region without neurogenic claudication; M96.1 Postlaminectomy syndrome, not elsewhere classified; G89.4 Chronic pain syndrome; F11.23 Opioid dependence with withdrawal; Z79.899 Other long term (current) drug therapy

== ENCOUNTER → 2018-12-23 | Outpatient (CLI) | payer OTHER ==
[~2018-12-23] VITALS: Ht 154.9 cm; Wt 59.1 kg
[~2018-12-23] MED LIST changes: +SPIRIVA RESPIMAT4 GM INH
--- NOTE | ~2018-12-23 | HPC ---
[facility] [address] [place] [address] PAIN MANAGEMENT CONSULTATION Name: ANA LUISA ANDERSON Room #: REG [facility] Leo.#: [id number] Admission: 12/23/18 Attend Phys: Yuan Santos DO Discharge: Date of : 43 Report #: [id number] THIS REPORT FOR: //name// CC: MD Samuel Jordan MD DATE OF SERVICE: 12/23/2018 CHIEF COMPLAINT: Low back pain, lower extremity pain with paresthesias. HISTORY OF PRESENT ILLNESS: As you know, the patient is a 73-year-old female followed by [facility] for extended period of time addressing low back pain, lower extremity pain with paresthesias. As you are aware, the patient has degenerative changes at L4-L5 and L5-S1 leading to bayfmkaa-zp-vachta central canal stenosis. Most recent imaging showed moderate stenosis, but this has been done years ago with last imaging present in our office of 2009. She has had progressive worsening of symptoms, now placing pain score up to 6/10, states she is having weakness in the legs, numbness and tingling throughout the day. She returns today for refill of medications stating no side effects to the therapy. We discussed the possibility of having the patient undergo epidural injections, but with recent cardiac issues, this has precluded her from undergoing the procedure to date, but does not preclude her long-term. Today, she is requesting refill on medication. ALLERGIES: No known drug allergies. CURRENT MEDICATIONS: Hydrocodone 5/325 one tab every 6 hours p.r.n. for pain, atorvastatin 20 mg per day, Plavix 75 mg per day, albuterol 2 puffs q. 4 hours p.r.n., lisinopril 10 mg per day, Cartia XT 120 mg per day, pantoprazole 40 mg per day, clonazepam 1 mg once a day. SOCIAL HISTORY: The patient denies tobacco, denies IV or illicit drug use, denies any chronic alcohol use. She is retired, retired years ago, unaccompanied today. IMAGING: No new imaging available. PQRS: The patient has arthritic changes of the lumbar spine, bilateral knees, bilateral hips. No rheumatoid arthritis. She reports she is not a fall risk, has not had a fall in the last 3 months. She is on blood thinners in the form of Plavix. She is treated for hypertension. She is on opioids and has been for extended period of time. She has a low assessment risk for opioid addiction. She has pain impact score of 21/70, indicating tsyr-lq-qhyvszqi interference of daily activities secondary to pain. [address] [address] PAIN MANAGEMENT CONSULTATION Name: ANA LUISA ANDERSON Room #: REG [facility]#: [id number] Admission: 12/23/18 Attend Phys: Yuan Santos DO Discharge: Date of : 43 Report #: [id number] PHYSICAL EXAMINATION: VITAL SIGNS: Blood pressure 150/70, pulse 80, respiratory rate 16 and unlabored. The patient is 100% on room air. Height 5 feet 1 inch tall, weight 130.2 pounds, BMI calculated 24.6. GENERAL: Well-developed, well-nourished, well-hydrated 73-year-old female, appearing stated age, placing current pain score at 6/10. HEENT: Normocephalic, atraumatic. Pupils equal, round, reactive to light. Extraocular muscles are intact. Sclerae nonicteric without injection. NEUROLOGIC: Cranial nerves 2-12 grossly intact. Speech fluent. EXTREMITIES: Show no clubbing, no cyanosis, no edema. MUSCULOSKELETAL: The patient has to utilize arms to rise from a seated position. She has an antalgic gait. Seated straight leg raising negative. Supine straight leg raising positive. NAFISA test negative. Modified Gaenslen's positive for axial low back pain. ASSESSMENT: 1. Symptomatic lumbar radiculopathy. 2. Progressively worsening spinal stenosis of lumbar spine. 3. Displacement of lumbar intervertebral disk with radiculopathy. 4. Lumbosacral spondylosis with radiculopathy. 5. Post-laminectomy syndrome. 6. Lumbar degeneration. 7. Complicated medical management. 8. Opioid dependency. 9. Chronic intractable pain. PLAN: 1. The patient returns today in followup visit requesting refill on medications. We have taken an extended period of time today to discuss our concerns of her increasing pain and decreasing capabilities of going about activities of daily living. I believe this is directly related to the patient's spinal stenosis. As you are aware, in 2009, patient had moderate spinal stenosis at the L4-L5 level. This has likely progressed in the past 8 years. Further evaluation may be necessary, but at present, the patient states that she is doing well despite the 6/10 pain level. She requests refill on medication at this time. She is going to consider her options over the next couple of months. If her pains symptoms do not improve and her functional capacity continues to decrease, she wishes to discuss further imaging and possible surgical options. 2. The patient was provided a prescription of [place] 7.5/325 one tab p.o. q. 6 hours p.r.n. for pain. I have given the patient #120, releasing today and 4 weeks from today. That is 2 months' worth of medication. We reviewed the fact that opiate medications are being used to provide analgesia adequate to support activities of daily living, not attempting to achieve a specific pain score on the 0-10 Visual Analog Scale. The current opiate [facility] [address] [place] [address] PAIN MANAGEMENT CONSULTATION Name: ANA LUISA ANDERSON Room #: REG [facility].#: [id number] Admission: 12/23/18 Attend Phys: Yuan Santos DO Discharge: Date of : 43 Report #: [id number] medications are providing sufficient analgesia to allow the patient to participate in activities of daily living. The patient is not exhibiting any aberrant behavior suggestive of drug diversion. The patient is not having any adverse reactions to medications. The patient is not suffering from daytime somnolence or mental acuity changes. The patient is managing opiate-induced constipation with appropriate drco-qzm-pcazwgk agents and dietary considerations. The patient was counseled on concern for caution with operating a motor vehicle while using opiate medications. A physical exam was performed and the patient's functional status was evaluated. All patients with back pain were advised against the bed rest greater than 4 days and were advised to return to normal activities. Pain score assessment was noted and the treatment plan was reviewed with the patient. All current medications, both prescribed and OTC were reviewed and reconciled on the electronic medical record. Tobacco screening was accomplished and smoking cessation was advised when indicated. BMI was noted and diet/exercise modification was recommended for all patients following outside normal parameters. I reviewed with the patient today their responsibilities to safeguard prescription medications, reviewed their responsibility to utilize medications only as prescribed by the physician. They are to seek and receive pain medications only from 1 physician group ([facility]). They are to use 1 pharmacy and keep the clinic informed if they change pharmacies. Their responsibilities include making followup visits in a timely fashion and to avoid abrupt discontinuation of medication usage. Their responsibilities further include bringing their medications (bottles from the pharmacy with residual pills) to the visit for possible confirmation of pill counts and the patient understands it is their responsibility to submit to random drug screens to ensure both that the medications prescribed are present, and that no other controlled substances are present. All prescriptions provided today were generated electronically. By: [id number] Yuan Santos DO /nt
[2018-12-23 10:26] VITALS: BP 150/70
--- NOTE | 2018-12-23 11:17 | NUR ---
Pain Clinic Assessment: 1. History of Osteoarthritis: SPINE JOINTS History of Rheumatoid Arthritis: Not Applicable 2. Height: 5 ft. 1 in. 154.9 cm. Weight: 130.2 lb. oz. 59.058 kg. Patient's BMI: 24.6 3. Vital Signs: BP: 150/70 Pulse: 80 Resp: 16 Temp: 02 Sat: 100 ECG Mon: 4. Pain Intensity: 6 5. Fall Risk: Dizziness: N Needs help standing or walking: N Fallen in the last 3 months: N Fall risk comments: 6. Patient on Blood Thinner: None 7. History of Hypertension: Y 8. Opioid Therapy greater than 6 weeks: Y Opiate Contract Signed: 05/09/16 9. Risk Assessment Tool Provided: LOW-0 10. Functional Assessment Tool: 11. Recreational Drug Use: Never Drug Type: Tobacco Use: Former Smoker Tobacco Type: Amount or Packs/day: How Many Years: Alcohol Use: No Frequency: Quant:
== END ==
LOC: PAIN 07:02
DX: M51.16 Intervertebral disc disorders with radiculopathy, lumbar region (principal); M47.27 Other spondylosis with radiculopathy, lumbosacral region; M96.1 Postlaminectomy syndrome, not elsewhere classified; M16.0 Bilateral primary osteoarthritis of hip; M17.0 Bilateral primary osteoarthritis of knee; Z79.891 Long term (current) use of opiate analgesic; Z79.899 Other long term (current) drug therapy

== ENCOUNTER → 2019-02-24 | Outpatient (CLI) | payer OTHER ==
[~2019-02-24] VITALS: Ht 154.9 cm; Wt 56.2 kg
--- NOTE | ~2019-02-24 | HPC ---
[facility] [place] [address] PAIN MANAGEMENT CONSULTATION Name: ANA LUISA ANDERSON Room #: REG DALIA [facility]Martin.#: [id number] Admission: 02/24/19 ������������������ Attend Phys: Yuan Santos DO Discharge: ������������������ Date of : 41 Report #: [id number] THIS REPORT FOR: //name// CC: Yuan Sethi MD DATE OF SERVICE: 02/24/2019 CHIEF COMPLAINT: Low back pain, lower extremity pain with paresthesias. HISTORY OF PRESENT ILLNESS: As you know, the patient is a 74-year-old female followed by [facility] for an extended period of time addressing low back pain, lower extremity pain with paresthesias. As you are aware, the patient has degenerative changes at the L4-L5 and L5-S1 level leading to ggxymkzd-vj-wvfzsw central canal stenosis. She has been treated with conservative medication management and interventional therapies. She returns today requesting refill of her hydrocodone for which she takes no more than 4 tablets per day, receiving 2 months' worth of medication at each visit. We have reviewed the patient's recent MO-TRACS, which shows appropriate refill of medications. There does not appear to be any aberrant trough entries in the file. She returns requesting refill of medications at this visit. She denies new injury or trauma or any changes in medical history since our last visit. She is placing pain score at 8/10. ALLERGIES: No known drug allergies. CURRENT MEDICATIONS: Hydrocodone 7.5/325 one tab p.o. q.6h. p.r.n. for pain, atorvastatin 20 mg per day, Plavix 75 mg per day, albuterol 2 puffs q.4h. p.r.n., lisinopril 10 mg per day, Cartia XT 120 mg per day, pantoprazole 40 mg once a day, clonazepam 1 mg at bedtime. SOCIAL HISTORY: The patient denies tobacco, alcohol, IV or illicit drug use. She is retired, retired years ago, unaccompanied today. IMAGING: No new imaging available. PQRS: The patient has known osteoarthritic changes of the lumbar spine, bilateral knees, bilateral hips, no rheumatoid arthritis, placing pain score at 8/10. She is not a fall risk, has not had a fall in the last 3 months. She is on blood thinner. She is treated for hypertension. She takes a long-term opioid medication with a low addiction potential. She is placing pain impact score 21/70, mild interference of daily activities secondary to pain. PHYSICAL EXAMINATION: [facility] [address] [place] [address] PAIN MANAGEMENT CONSULTATION Name: ANA LUISA ANDERSON Room #: REG [facility].#: [id number] Admission: 02/24/19 ������������������ Attend Phys: Yuan Santos DO Discharge: ������������������ Date of : 41 Report #: [id number] VITAL SIGNS: Blood pressure 132/89, pulse 111, respiratory rate 16 and unlabored. The patient is 96% on room air. Height 5 feet 1 inch tall, weight 124 pounds, BMI calculated 23.4. GENERAL: Well-developed, well-nourished, well-hydrated 74-year-old female appearing stated age, placing pain score today 8/10. HEENT: Normocephalic, atraumatic. Pupils equal, round, reactive to light. EXTREMITIES: Show no clubbing, no cyanosis, and no edema. MUSCULOSKELETAL: The patient has antalgic gait. Seated straight leg raising negative. Supine straight leg raising positive. Sparkle's test negative. Modified Gaenslen's is positive for axial low back pain. Ankle clonus negative. Babinski is negative. ASSESSMENT: 1. Symptomatic lumbar radiculopathy. 2. Spinal stenosis of the lumbar spine. 3. Displacement of lumbar intervertebral disk with radiculopathy. 4. Lumbosacral spondylosis with radiculopathy. 5. Post-laminectomy syndrome. 6. Lumbar degeneration. 7. Complicated medication management. 8. Opioid dependency. 9. Chronic intractable pain. PLAN: 1. The patient returns today in followup visit requesting refill on medications. Despite the 8/10 pain, she reports good efficacy with the medications. She returns today discussing concerns of a recent hospitalization of her . She is planning to go visit him today. She states that staying in the hospital has exacerbated some of her symptoms, though she always reports a very high level of pain with low tolerance to those symptoms. She returns requesting refill on medications today. 2. We reviewed the fact that opiate medications are being used to provide analgesia adequate to support activities of daily living, not attempting to achieve a specific pain score on the 0-10 Visual Analog Scale. The current opiate medications are providing sufficient analgesia to allow the patient to participate in activities of daily living. The patient is not exhibiting any aberrant behavior suggestive of drug diversion. The patient is not having any adverse reactions to medications. The patient is not suffering from daytime somnolence or mental acuity changes. The patient is managing opiate-induced constipation with appropriate vmwz-hdz-hdqmqvh agents and dietary considerations. The patient was counseled on concern for caution with operating a motor vehicle while using opiate medications. A physical exam was performed and the patient's functional status was evaluated. All patients with back pain were advised against the bed rest greater than 4 days and were advised to return to normal activities. Pain score assessment was [facility] [address] [place] [address] PAIN MANAGEMENT CONSULTATION Name: ANA LUISA ANDERSON Room #: REG [facility].#: [id number] Admission: 02/24/19 ������������������ Attend Phys: Yuan Santos DO Discharge: ������������������ Date of : 43 Report #: [id number] noted and the treatment plan was reviewed with the patient. All current medications, both prescribed and OTC were reviewed and reconciled on the electronic medical record. Tobacco screening was accomplished and smoking cessation was advised when indicated. BMI was noted and diet/exercise modification was recommended for all patients following outside normal parameters. I reviewed with the patient today their responsibilities to safeguard prescription medications, reviewed their responsibility to utilize medications only as prescribed by the physician. They are to seek and receive pain medications only from 1 physician group ( [facility]). They are to use 1 pharmacy and keep the clinic informed if they change pharmacies. Their responsibilities include making followup visits in a timely fashion and to avoid abrupt discontinuation of medication usage. Their responsibilities further include bringing their medications (bottles from the pharmacy with residual pills) to the visit for possible confirmation of pill counts and the patient understands it is their responsibility to submit to random drug screens to ensure both that the medications prescribed are present, and that no other controlled substances are present. All prescriptions provided today were generated electronically. 3. The patient was provided prescription of [place] 7.5/325 one tab p.o. q.6h. p.r.n. for pain, I have given the patient #120, releasing today and 4 weeks from today, 2 months' worth of medication. 4. We will see the patient back in followup visit in 2 months for medication management, also discuss alternative and adjunctive treatment options. ��������������������������������������������� ���������������������������������������� By: ��������������������������������������������� [id number] Yuan Santos DO /nt
[2019-02-24 11:01] VITALS: BP 132/89
--- NOTE | 2019-02-24 11:16 | NUR ---
Pain Clinic Assessment: 1. History of Osteoarthritis: SPINE JOINTS History of Rheumatoid Arthritis: Not Applicable 2. Height: 5 ft. 1 in. 154.9 cm. Weight: 124.0 lb. oz. 56.246 kg. Patient's BMI: 23.4 3. Vital Signs: BP: 132/89 Pulse: 111 Resp: 16 Temp: 02 Sat: 96 ECG Mon: 4. Pain Intensity: 8 5. Fall Risk: Dizziness: N Needs help standing or walking: N Fallen in the last 3 months: N Fall risk comments: 6. Patient on Blood Thinner: None 7. History of Hypertension: Y 8. Opioid Therapy greater than 6 weeks: Y Opiate Contract Signed: 05/09/16 9. Risk Assessment Tool Provided: LOW-0 10. Functional Assessment Tool: 11. Recreational Drug Use: Never Drug Type: Tobacco Use: Former Smoker Tobacco Type: Amount or Packs/day: How Many Years: Alcohol Use: No Frequency: Quant:
== END ==
LOC: PAIN 07:12
DX: M47.27 Other spondylosis with radiculopathy, lumbosacral region (principal); M51.16 Intervertebral disc disorders with radiculopathy, lumbar region; M48.061 Spinal stenosis, lumbar region without neurogenic claudication; G89.4 Chronic pain syndrome; M96.1 Postlaminectomy syndrome, not elsewhere classified; F11.20 Opioid dependence, uncomplicated; Z79.899 Other long term (current) drug therapy

== ENCOUNTER → 2019-04-14 | Outpatient (CLI) | payer OTHER ==
[~2019-04-14] VITALS: Ht 154.9 cm; Wt 54.2 kg
[2019-04-14 08:30] VITALS: BP 130/68
--- NOTE | 2019-04-14 08:47 | NUR ---
Pain Clinic Assessment: 1. History of Osteoarthritis: SPINE JOINTS History of Rheumatoid Arthritis: Not Applicable 2. Height: 5 ft. 1 in. 154.9 cm. Weight: 119.6 lb. oz. 54.250 kg. Patient's BMI: 22.6 3. Vital Signs: BP: 130/68 Pulse: 118 Resp: 14 Temp: 02 Sat: 97 ECG Mon: 4. Pain Intensity: 7 5. Fall Risk: Dizziness: N Needs help standing or walking: N Fallen in the last 3 months: N Fall risk comments: 6. Patient on Blood Thinner: None 7. History of Hypertension: Y 8. Opioid Therapy greater than 6 weeks: Y Opiate Contract Signed: 05/09/16 9. Risk Assessment Tool Provided: LOW-0 10. Functional Assessment Tool: 11. Recreational Drug Use: Never Drug Type: Tobacco Use: Former Smoker Tobacco Type: Amount or Packs/day: How Many Years: Alcohol Use: No Frequency: Quant:
--- NOTE | 2019-04-20 10:49 | OD ---
[facility] [place] [address] [place] [address] DELIVERY NOTE Name: ANA LUISA ANDERSON Room #: REG [facility] M.R.#: [id number] Admission: 04/14/19 ������������������ Attend Phys: Yuan Santos DO Discharge: ������������������ Date of : 43 Report #: [id number] THIS REPORT FOR: //name// CC: Yuan Sethi MD DATE OF SERVICE: 04/14/2019 REFERRING PHYSICIAN: Samuel Sethi MD. CHIEF COMPLAINT: Low back pain, right lower extremity pain with paresthesias. HISTORY OF PRESENT ILLNESS: As you know, the patient is a 74-year-old female followed by [facility] for extended period of time addressing low back pain, right lower extremity pain with paresthesias. She has degenerative changes at L4-L5 and L5-S1 level leading to exjdurgb-rm-ahxjae central canal stenosis and progressively worsening symptoms. She returns today in followup visit requesting refill on medications. She is somewhat emotionally distraught as her has just about 2 weeks ago. She states that she has not been able to address her ongoing pain issues due to this recent illness and subsequent of her . She returns today requesting refill on medications. She indicates medications provide some benefit for pain control despite the elevated pain level of 7/10 today. ALLERGIES: No known drug allergies. CURRENT MEDICATIONS: Hydrocodone 7.5/325 one tab every 6 hours p.r.n. for pain, atorvastatin 20 mg per day, Plavix 75 mg a day, albuterol 2 puffs q. 4 hours p.r.n., lisinopril 10 mg per day, Cartia XT 120 mg per day, pantoprazole 40 mg per day, clonazepam 1 mg p.o. at bedtime. SOCIAL HISTORY: The patient denies tobacco, alcohol, IV or illicit drug use. She is retired, retired years ago. IMAGING: No new imaging available. PQRS: The patient has known osteoarthritic change of the lumbar spine, bilateral hips and bilateral knees. No rheumatoid arthritis. She is placing pain score 7/10. She is not a fall risk, has not had a fall in the last 3 months, but nearly tripped over her oxygen tubing 2 days ago. She is on blood thinners. She is not treated for hypertension. She is on chronic opioids. She has a low to moderate risk for opioid addiction. She is placing pain impact score 21/70 indicating mild interference of daily activities secondary to pain. PHYSICAL EXAMINATION: [facility] [address] [place] [address] DELIVERY NOTE Name: ANA LUISA ANDERSON Room #: REG [facility]#: [id number] Admission: 04/14/19 ������������������ Attend Phys: Yuan Santos DO Discharge: ������������������ Date of : 43 Report #: [id number] VITAL SIGNS: Blood pressure 130/68, pulse 118, respiratory rate 14 and unlabored. The patient is 97% on room air. Height 5 feet 1 inch tall, weight 119.6 pounds, BMI calculated 22.6. GENERAL: Well-developed, well-nourished, well-hydrated 74-year-old female appearing stated age. Pain is rated at 7/10. HEENT: Normocephalic, atraumatic. Pupils equal, round, reactive to light. Speech fluent. The patient deemed a fair historian. EXTREMITIES: Show no clubbing, no cyanosis, and no edema. MUSCULOSKELETAL: Lower extremity strength is symmetrical, but deconditioned bilaterally, 5/5, intact to light touch from L1 through S2 dermatomes. Antalgic gait favoring right lower extremity over left. Seated straight leg raising negative. Supine straight leg raising positive right. Sparkle's test negative. Modified Gaenslen's positive for axial low back pain. ASSESSMENT: 1. Symptomatic lumbar radiculopathy. 2. Progressively worsening spinal stenosis of lumbar spine. 3. Displacement of lumbar intervertebral disk with radiculopathy. 4. Lumbosacral spondylosis with radiculopathy. 5. Post-laminectomy syndrome. 6. Lumbar degeneration. 7. Opioid dependency. 8. Chronic intractable pain. PLAN: 1. The patient returns today in followup visit requesting refill on medications. She feels medications are working beneficially for pain control. She is requesting refill of medications be provided for the next 2 months. She denies side effects with the medication including somnolence, decreased mental acuity, disorientation, confusion, mental slowing. We have agreed to provide the patient with 2 months' worth of medication with the understanding that she will utilize the medication only as necessary. We do need to be determining a new treatment options as her symptoms are progressing and I have discussed with her the possibility of decompressive surgery to address the lumbar stenosis. She will consider this option. 2. The patient was provided a prescription of hydrocodone 7.5/325 one tab every 6 hours p.r.n. for pain, #120, releasing today and 4 weeks from today, 2 months' worth of medication. 3. We reviewed the fact that opiate medications are being used to provide analgesia adequate to support activities of daily living, not attempting to achieve a specific pain score on the 0-10 Visual Analog Scale. The current opiate medications are providing sufficient analgesia to allow the patient to participate in activities of daily living. The patient is not exhibiting any aberrant behavior suggestive of drug diversion. The patient is not having any adverse reactions to medications. The patient is not suffering from daytime somnolence or mental acuity changes. The patient is managing opiate-induced [facility] [address] [place] [address] DELIVERY NOTE Name: ANA LUISA ANDERSON Room #: REG [facility].#: [id number] Admission: 04/14/19 ������������������ Attend Phys: Yuan Santos DO Discharge: ������������������ Date of : 43 Report #: [id number] constipation with appropriate npuk-fpt-apjdtbb agents and dietary considerations. The patient was counseled on concern for caution with operating a motor vehicle while using opiate medications. A physical exam was performed and the patient's functional status was evaluated. All patients with back pain were advised against the bed rest greater than 4 days and were advised to return to normal activities. Pain score assessment was noted and the treatment plan was reviewed with the patient. All current medications, both prescribed and OTC were reviewed and reconciled on the electronic medical record. Tobacco screening was accomplished and smoking cessation was advised when indicated. BMI was noted and diet/exercise modification was recommended for all patients following outside normal parameters. I reviewed with the patient today their responsibilities to safeguard prescription medications, reviewed their responsibility to utilize medications only as prescribed by the physician. They are to seek and receive pain medications only from 1 physician group ([facility]). They are to use 1 pharmacy and keep the clinic informed if they change pharmacies. Their responsibilities include making followup visits in a timely fashion and to avoid abrupt discontinuation of medication usage. Their responsibilities further include bringing their medications (bottles from the pharmacy with residual pills) to the visit for possible confirmation of pill counts and the patient understands it is their responsibility to submit to random drug screens to ensure both that the medications prescribed are present, and that no other controlled substances are present. All prescriptions provided today were generated electronically. 4. We will see the patient back in followup visit in 2 months. ��������������������������������������������� <ELECTRONICALLY SIGNED> ���������������������������������������� By: Yuan Santos DO ��������������������������������������������� 04/20/19 1049 [id number] Yuan Santos DO /nt
== END ==
LOC: PAIN 06:47
DX: M47.26 Other spondylosis with radiculopathy, lumbar region (principal); M54.5 Low back pain; G89.29 Other chronic pain; M51.16 Intervertebral disc disorders with radiculopathy, lumbar region; M48.061 Spinal stenosis, lumbar region without neurogenic claudication; F11.20 Opioid dependence, uncomplicated